=== PATIENT | male | born 1955 | race Hispanic/Latino ===

== ENCOUNTER 2018-07-16 11:46 | Inpatient (IN) | payer OTHER ==
[~2018-07-16] VITALS: Ht 167.6 cm; Wt 110.4 kg
[2018-07-16] MEDS ORDERED: SODIUM CHLORIDE 0.9% 1000ML 1,000 ML IV STA (12:07)
[2018-07-16] MEDS ORDERED: ASPIRIN 81 MG CHEW TAB PO ONE ×2 (12:15→14:15)
[2018-07-16] MEDS ORDERED: CLINDAMYCIN 600MG / 50ML 50 ML IV ONE (12:15)
[2018-07-16 12:48] LABS: BASOPHILS % 0.5 % (0.0-1.0); EOSINOPHILS # (AUTO) 0.1 (0.0-0.4); EOSINOPHILS % 1.2 % (0.0-6.0); HEMATOCRIT 44.2 % (38.2-49.6); HEMOGLOBIN 15.1 g/dL (14.0-18.0); LYMPHOCYTES # (AUTO) 1.1 (1.0-3.2); LYMPHOCYTES % 14.1 % (18.0-39.1); MEAN CORPUSCULAR HEMOGLOBIN 30.8 pg (28-32); MEAN CORPUSCULAR HGB CONC 34.2 g/dL (31-35); MEAN CORPUSCULAR VOLUME 90.2 fL (81-99); MONOCYTES # (AUTO) 0.5 (0.2-0.8); MONOCYTES % 6.2 % (4.4-11.3); NEUTROPHILS % 77.4 % (38.7-80.0); PLATELET COUNT 237 x10e3/uL (140-360); RED CELL DISTRIBUTION WIDTH 12.9 % (11.7-14.4)
[2018-07-16 12:58] LABS: INR 0.95; PROTHROMBIN TIME 13.5 seconds (11.9-14.5)
[2018-07-16 12:59] LABS: PARTIAL THROMBOPLASTIN TIME 30.4 seconds (23.8-35.5)
[2018-07-16 13:07] LABS: ALANINE AMINOTRANSFERASE 26 IU/L (0-55); ALBUMIN 3.4 g/dL (3.5-5.0); ALBUMIN/GLOBULIN RATIO 0.8 (0.8-2.0); ALKALINE PHOSPHATASE 98 IU/L (40-150); ANION GAP 13.5 mmol/L (8-16); BLOOD UREA NITROGEN 8 mg/dL (7-26); BUN/CREATININE RATIO 12 (6-25); CALCIUM 9.6 mg/dL (8.4-10.2); CARBON DIOXIDE 24 mmol/L (22-29); CHLORIDE 100 mmol/L (98-107); CREATINE KINASE 96 IU/L (30-200); CREATININE, SERUM 0.69 mg/dL (0.72-1.25); EST GLOMERULAR FILTRATION RATE > 60 ML/MIN (60-); GLUCOSE 192 mg/dL (74-118); POTASSIUM 3.5 mmol/L (3.5-5.1); SODIUM 134 mmol/L (136-145)
--- NOTE | 2018-07-16 14:24 | Diagnostic Imaging Report ---
EXAM: CHEST 2 VIEWS, PA and lateral DATE: 07/16/2018 12:47 PM Time stamp on exam: 1:48 PM INDICATION: Fibrillation COMPARISON: None FINDINGS: LINES/TUBES: None LUNGS: No consolidations or edema. PLEURA: No effusions or pneumothorax. HEART AND MEDIASTINUM: Mild cardiac prominence. BONES AND SOFT TISSUES: Old left-sided rib fracture. Mild degenerative changes of the spine. IMPRESSION: No acute thoracic abnormality. Signed by: Dr. Antwan Fregoso DO on 07/16/2018 2:21 PM
[2018-07-16] MEDS ORDERED: ENOXAPARIN SODIUM INJ 100 MG/ML SYR SC ONE ×2 (14:45→21:00)
--- OUTSIDE RECORDS SUMMARY | 2018-07-16 17:39 | XMS REPORT ---
Author Author [facility] Address Unknown Phone Unavailable Care Team Providers Care Inspector Watch Train Name Role Phone Monique CLIFTON Unavailable Unavailable Problems This patient has no known problems. Allergies, Adverse Reactions, Alerts This patient has no known allergies or adverse reactions. Medications This patient has no known medications. Results Test Description Test Time Test Comments Text Results Atomic Results Result Comments CHEST 2 VIEWS 2018-07-16 14:19:00 [place] [address] Patient Name: MARCELA ARORA MR #: [id number] : 1955 Age/Sex: 62/M Req #: [id number] Adm Physician: Ordered by: ORIN CLIFTON MD Report #: [id number] Location: ER Room/Bed: Procedure: [id number] DX/CHEST 2 VIEWS Exam Date: 07/16/18 Exam Time: 1400 REPORT STATUS: Signed EXAM: CHEST 2 VIEWS, PA and lateral DATE: 07/16/2018 12:47 PM Time stamp on exam: 1:48 PM INDICATION: Fibrillation COMPARISON: None FINDINGS: LINES/TUBES: None LUNGS: No consolidations or edema. PLEURA: No effusions or pneumothorax. HEART AND MEDIASTINUM: Mild cardiac prominence. BONES AND SOFT TISSUES: Old left-sided rib fracture. Mild degenerative changes of the spine. IMPRESSION: No acute thoracic abnormality. Signed by: Dr. Lisset Fregoso DO on 07/16/2018 2:21 PM Dictated By: LISSET FREGOSO DO 142 Transcribed By: MARGARITO on 07/16/18 142 COPY TO: ORIN CLIFTON MD
[2018-07-16 21:20] VITALS: BP 146/83
[2018-07-17 00:20] LABS: CREATINE KINASE 71 IU/L (30-200)
[2018-07-17 00:42] VITALS: BP 146/83
[2018-07-17 04:48] VITALS: BP 146/83
[2018-07-17 06:12] LABS: CREATINE KINASE 61 IU/L (30-200)
[2018-07-17 06:41] LABS: CHOL/HDL RATIO 15.4 (3.9-4.7); CHOLESTEROL 169 MD/DL (0-199); HDL CHOLESTEROL 11 MG/DL (40-60); TRIGLYCERIDES 972 MG/DL (0-149)
[2018-07-17 08:30] VITALS: BP 147/90
[2018-07-17] MEDS ORDERED: MICARDIS40 MG PO (09:13)
[2018-07-17] MEDS ORDERED: PLAVIX75 MG PO (09:13)
[2018-07-17] MEDS ORDERED: AMLODIPINE BESY10 MG PO (09:13)
[2018-07-17] MEDS ORDERED: ATORVASTATIN CA20 MG PO (09:13)
[2018-07-17] MEDS: ASPIRIN 81 MG ENTERIC COATED PO SCH (09:47)
--- NOTE | 2018-07-17 10:53 | History and Physical ---
Mr. David is a 62-year-old man with a history of diabetes, hypertension, hyperlipidemia, and alcohol abuse came to the emergency room complaining of right lower extremity cellulitis for 4 days. He was told his heart had irregular beats. PAST MEDICAL HISTORY: Diabetes, hypertension, hyperlipidemia. ALLERGIES: NO KNOWN DRUG ALLERGIES. SOCIAL HISTORY: He lives at home with his family. He does not smoke, but he drinks almost every day. PHYSICAL EXAMINATION GENERAL: He is awake and alert. VITALS: Temperature is 98.4, blood pressure 146/83. CARDIOVASCULAR: Irregularly irregular. LUNGS: Poor inspiratory effort. ABDOMEN: Soft. EXTREMITIES: The right lower extremity shows erythema and is warm to touch. BLOOD WORK: Potassium is 3.5, creatinine 2.69, glucose 192. White count 7.75, hemoglobin 15.1, hematocrit 44.2. Chest x-ray shows no acute findings. ADMITTING DIAGNOSES 1. Right lower extremity cellulitis. 2. New-onset atrial fibrillation. 3. Hypertension. 4. Diabetes, type 2. 5. Hyperlipidemia. PLAN: Is to admit the patient to the hospital. IV antibiotics. We are going to get a cardiology consult and infectious disease consult. Continue aspirin. Restart home medications. ADA diet. Sliding scale with insulin. All this was discussed with the patient and family at bedside. All questions were answered to satisfaction. Job#: [id number] ANNIE
[2018-07-17] MEDS: ENOXAPARIN SODIUM INJ 100 MG/ML SYR SC SCH ×2 (11:02→22:01)
[2018-07-17 11:36] VITALS: BP 129/90
[2018-07-17] MEDS ORDERED: DEXTROSE 50% SYRINGE 50 ML IV PRN (12:30)
--- NOTE | 2018-07-17 12:42 | Consultation ---
DATE OF CONSULTATION: July 17, 2018 CARDIOLOGY CONSULTATION REASON FOR CONSULTATION: Atrial fibrillation. HISTORY OF PRESENT ILLNESS: This is a 62-year-old man who has a history of obesity, hypertension, nonobstructive coronary artery disease, hyperlipidemia, and possible history of stroke from a cerebral embolism in [place], who presented to the emergency department with right lower extremity pain and redness. He was seen at an outside facility and was told he had atrial fibrillation and was sent here for additional care. He has no prior history of atrial fibrillation. He has no symptoms of chest pain, shortness of breath, palpitations, orthopnea, paroxysmal nocturnal dyspnea, or syncopal episodes. REVIEW OF SYSTEMS: A 12-point review of systems was conducted, is negative otherwise as above in the HPI. PAST MEDICAL HISTORY: Hypertension, hyperlipidemia, obesity, nonobstructive coronary artery disease, cerebrovascular accident. PAST SURGICAL HISTORY: Cardiac catheterization. PAST FAMILY HISTORY: No premature coronary artery disease or sudden cardiac . SOCIAL HISTORY: Denies any current illicit drug use, alcohol use, tobacco use. ALLERGIES: NO KNOWN DRUG ALLERGIES. MEDICATIONS: See medication reconciliation form. PHYSICAL EXAMINATION VITAL SIGNS: Temperature is 97.5 degrees Fahrenheit, heart rate is 75, respirations are 18, blood pressure is 147/90, oxygen saturation 95% on room air. GENERALLY: He is a man in no apparent distress, alert and oriented x3, obese build. HEAD: Normocephalic, atraumatic. EYES: The extraocular muscles are intact. Conjunctiva is clear. NECK: No JVD, no bruits. CARDIOVASCULAR: He is irregularly irregular, normal rate. No murmurs appreciated. Normal S1 and S2. LUNGS: Clear to auscultation. No wheezing, no rales. ABDOMEN: Obese, soft, nontender. EXTREMITIES: 1+ edema. The right lower extremity has erythema as well, mildly tender to palpation. NEUROLOGIC: No focal deficits noted. Cranial nerves appear grossly intact. PSYCHIATRIC: Normal mood and affect. All laboratory data reviewed, notable for white blood cell count of 7.7, hemoglobin 15.1. His triglycerides are 972, total cholesterol is 169, HDL is 11. Glucose is 192. Troponins of less than 0.01 x3 sets. Creatinine is 0.69, potassium is 3.5. A 12-lead electrocardiogram shows atrial fibrillation with nonspecific ST-T wave abnormalities. Chest x-ray shows no acute thoracic abnormality. IMPRESSION/RECOMMENDATIONS 1. Atrial fibrillation. Unclear duration as the patient is relatively asymptomatic. Patient is already receiving Lovenox injections and will continue this q.12 h. Patient will require oral anticoagulation for an elevated CHADS-VASc score of at least 4 due to diabetes, hypertension, and possible history of cerebrovascular accident. Unfortunately, the patient has no insurance currently. The patient and his daughter state that he will be unable to follow up for regular INR checks. I will provide him free samples of Xarelto, provide discount cards, and patient's family state that they will provide financial assistance. I also discussed with patient the importance of enrolling in the [facility] [employer] Card program. In the meantime, while he is here will check a 2-D echocardiogram and all other labs consisting of hemoglobin A1c, TSH, magnesium, and replace all electrolyte levels. Will also start him on metoprolol for rate control. 2. Hypertension. The patient's blood pressure is mildly elevated. Will restart home antihypertensive regimens. 3. Hyperlipidemia. Continue atorvastatin; however, will increase to 40 mg. Thank you for the consultation. Will follow along with you. Job#: [id number] EV
[2018-07-17] MEDS ORDERED: CLOPIDOGREL BISULFATE 75 MG TAB PO SCH (13:00)
[2018-07-17] MEDS: INSULIN REGULAR, HUMAN 100 UNIT/1 ML 3ML VIAL SQ SCH ×3 (13:29→21:00)
[2018-07-17] MEDS: METOPROLOL TARTRATE 25 MG TAB PO SCH ×2 (13:29→22:02)
[2018-07-17] MEDS: TELMISARTAN 40 MG TAB PO SCH (13:29)
[2018-07-17 17:30] VITALS: BP 125/84
[2018-07-17] MEDS: CLINDAMYCIN 600MG / 50ML 50 ML IV SCH (17:32)
--- NOTE | 2018-07-17 18:13 | Consultation ---
DATE OF CONSULTATION: July 17, 2018 INFECTIOUS DISEASE CONSULTATION REASON FOR CONSULTATION: Cellulitis of the leg. HISTORY OF PRESENT ILLNESS: This is a patient who is a 62-year-old male who has history of obesity, diabetes mellitus, hypertension, hyperlipidemia, alcohol abuse. Comes in with redness and swelling of the right lower extremity for 4 days. Also noted that his heart has irregular heartbeat. Patient came to the emergency room, where he is being evaluated and being admitted. He is currently lying in bed comfortably, family at the bedside. PAST MEDICAL HISTORY: Diabetes mellitus, hypertension, hyperlipidemia, obesity. PAST SURGICAL HISTORY: He denies. ALLERGIES: NKA. SOCIAL HISTORY: There is no smoking, drug abuse. REVIEW OF SYSTEMS: HEENT: Negative. PULMONARY: Negative. CARDIAC: As above. : Negative. GI: Negative. SKIN: There is no rash except on the leg. The patient was admitted. He was diagnosed with atrial fibrillation. He was noted to have redness and swelling of his leg. Infectious Disease was consulted. LABORATORY DATA: White count 7.75. Hemoglobin 15. His sodium 134, potassium 3.5, creatinine 0.69. Liver enzymes within normal limits. PHYSICAL EXAMINATION: GENERAL: He is currently alert, oriented, does not seem to be in acute distress. VITALS: Stable. Currently afebrile. HEENT: He does not appear icteric. NECK: Supple. CHEST: Clear. HEART: S1 and S2. No S3, no S4, no murmur. ABDOMEN: Soft. Bowel sounds present. THE LEG: There is redness and swelling coming from below the knee to above the ankle on the right. IMPRESSION: 1. Cellulitis of the leg. Will put the patient on IV clindamycin for the time-being. 2. Atrial fibrillation. Cardiology has been consulted. 3. Obesity. 4. Hypertension. 5. Diabetes. Will follow with you. Job#: [id number] EV
[2018-07-17 20:16] VITALS: BP 135/79
[2018-07-17] MEDS ORDERED: CLINDAMYCIN 600MG / 50ML 50 ML IV SCH (22:00)
[2018-07-17] MEDS: ATORVASTATIN 20 MG TAB PO SCH (22:00)
[2018-07-18] VITALS (8 sets, daily range): BP systolic 115–136; BP diastolic 58–82
[2018-07-18] MEDS: CLINDAMYCIN 600MG / 50ML 50 ML IV SCH ×3 (01:25→16:54)
[2018-07-18] MEDS: INSULIN REGULAR, HUMAN 100 UNIT/1 ML 3ML VIAL SQ SCH ×4 (07:50→21:00)
[2018-07-18] MEDS: ENOXAPARIN SODIUM INJ 100 MG/ML SYR SC SCH ×2 (08:50→21:00)
[2018-07-18] MEDS: TELMISARTAN 40 MG TAB PO SCH (09:00)
[2018-07-18] MEDS: METOPROLOL TARTRATE 25 MG TAB PO SCH ×2 (09:00→21:00)
[2018-07-18] MEDS ORDERED: AMLODIPINE BESYLATE 10 MG TAB PO SCH (09:00)
[2018-07-18] MEDS: ASPIRIN 81 MG ENTERIC COATED PO SCH (10:05)
--- NOTE | 2018-07-18 10:08 | Progress Note ---
DATE: July 18, 2018 Mr. David is a 62-year-old man with diabetes, hypertension, hyperlipidemia. He came to the emergency room complaining of right lower extremity cellulitis and irregular heartbeat. PHYSICAL EXAMINATION GENERAL: Today he is awake and alert. VITALS: Temperature is 97.6. Blood pressure is 125/80. HEART: Continues to be irregularly irregular. LUNGS: Clear to auscultation. ABDOMEN: Soft. EXTREMITIES: The right lower extremity still has some erythema but it is better. BLOOD WORK: Potassium is 3.5, creatinine 0.69, glucose 192. White count 7.75, hemoglobin 15.1, hematocrit 44.2. Chest x-ray shows no acute findings. Echocardiogram is pending. ADMITTING DIAGNOSES 1. Right lower extremity cellulitis. 2. New-onset atrial fibrillation. 3. Hypertension. 4. Diabetes, type 2. 5. Hyperlipidemia. The plan at the present time is to continue IV antibiotics. Continue ADA diet. Sliding scale with insulin. The plan for him is probably to discharge him home tomorrow. 3D Specialist to provide samples of Xarelto for this patient for his atrial fibrillation. Probably switch him to p.o. antibiotics. The patient does not have insurance, so he should try to enroll in the [facility][[email or web address]] [email or web address] Card program to continue his treatment. All this was discussed with the patient and family. All questions were answered to satisfaction. Job#: [id number] [place]
[2018-07-18 10:37] LABS: ANION GAP 11.3 mmol/L (8-16); BLOOD UREA NITROGEN 11 mg/dL (7-26); BUN/CREATININE RATIO 15 (6-25); CALCIUM 9.4 mg/dL (8.4-10.2); CARBON DIOXIDE 24 mmol/L (22-29); CHLORIDE 102 mmol/L (98-107); CREATININE, SERUM 0.74 mg/dL (0.72-1.25); EST GLOMERULAR FILTRATION RATE > 60 ML/MIN (60-); GLUCOSE 221 mg/dL (74-118); MAGNESIUM 1.9 MG/DL (1.3-2.1); POTASSIUM 3.3 mmol/L (3.5-5.1); SODIUM 134 mmol/L (136-145)
[2018-07-18 11:00] LABS: FREE T4 (FREE THYROXINE) 1.18 ng/dL (0.9-1.8); THYROID STIMULATING HORMONE 0.932 uIU/mL (0.350-4.940)
--- NOTE | 2018-07-18 14:11 | Progress Note ---
DATE: July 18, 2018 CARDIOLOGY PROGRESS NOTE SUBJECTIVE: Patient feeling well. Denies any chest pain, palpitations or shortness of breath. OBJECTIVE VITAL SIGNS: Temperature is 97.4. Heart rate is 88. Respirations are 24. Blood pressure is 115/58. Oxygen saturation is 93% on room air. GENERAL: He is an obese man lying comfortably in bed in no apparent distress. CARDIOVASCULAR: Irregularly irregular, normal rate. Normal S1 and S2. No murmurs. LUNGS: Clear to auscultation. ABDOMEN: Obese, soft, nontender. EXTREMITIES: There are right lower extremity swelling and erythema. NEUROLOGIC: No focal deficits noted. CARDIOVASCULAR MEDICATIONS: Reviewed. LABORATORY DATA: Reviewed. Notable for normal TSH of 0.932. Magnesium is 1.9. Potassium is 3.3. A 2-D echocardiogram showed overall normal left ventricular systolic function and a mildly dilated left atrium. IMPRESSION 1. Atrial fibrillation. 2. Hypertension. 3. Hyperlipidemia. 4. Obesity. 5. Cellulitis. 6. Diabetes mellitus. RECOMMENDATIONS 1. This patient has an elevated CHADS-VASc score and has continued to remain in atrial fibrillation with controlled ventricular response. Continue beta blockers for heart rate control. Start the patient on Xarelto 20 mg for anticoagulation. His TSH was within normal limits. Please correct electrolytes and keep potassium greater than 4 and magnesium greater than 2. Otherwise, no further cardiovascular workup needed at this point in time. The patient will need to be enrolled in the [facility] system for adequate followup. 2. Hypertension: The patient's blood pressure is reasonably well controlled on current antihypertensives. 3. Hyperlipidemia: Continue atorvastatin. 4. Diabetes mellitus: Treatment per primary team. 5. Cellulitis: Treatment per primary team. Thank you for the consultation. The patient is stable for discharge from a cardiovascular standpoint on metoprolol and Xarelto. Job#: [id number]
[2018-07-18] MEDS: ATORVASTATIN 20 MG TAB PO SCH (21:00)
[2018-07-19] VITALS: BP 119/86
[2018-07-19] MEDS: CLINDAMYCIN 600MG / 50ML 50 ML IV SCH ×2 (01:46→08:22)
[2018-07-19] MEDS: INSULIN REGULAR, HUMAN 100 UNIT/1 ML 3ML VIAL SQ SCH (07:52)
[2018-07-19 08:00] VITALS: BP 169/84
[2018-07-19] MEDS: METOPROLOL TARTRATE 25 MG TAB PO SCH (08:24)
[2018-07-19] MEDS: ENOXAPARIN SODIUM INJ 100 MG/ML SYR SC SCH (08:24)
[2018-07-19] MEDS: ASPIRIN 81 MG ENTERIC COATED PO SCH (10:15)
[2018-07-19] MEDS: TELMISARTAN 40 MG TAB PO SCH (10:16)
[2018-07-19 10:20] VITALS: BP 169/84
[2018-07-19] MEDS ORDERED: CLEOCIN HCL150 MG PO (11:28)
[2018-07-19] MEDS ORDERED: METOPROLOL TART25 MG PO (11:28)
[2018-07-19 12:00] VITALS: BP 118/58
--- NOTE | 2018-07-19 18:53 | Discharge Summary ---
HOSPITAL COURSE: Ms. Watkins is a 62-year-old man with history of diabetes, hypertension and hyperlipidemia. He came to the emergency room with right lower extremity cellulitis and new onset atrial fibrillation. Cellulitis is improving. He is on Xarelto and metoprolol for his atrial fibrillation. PHYSICAL EXAM: GENERAL: Today, he is awake and alert. He is feeling fine. He wants to go home. VITAL SIGNS: Temperature is 97.6, blood pressure 169/84. HEART: Regular irregular. LUNGS: Clear to auscultation. ABDOMEN: Soft. BLOOD WORK: White count 7.75, hemoglobin 15.1. Glucose 160. Creatinine 0.74. Blood cultures negative. Chest x-ray no acute findings. DISCHARGE DIAGNOSES: 1. Right lower extremity cellulitis. 2. New onset atrial fibrillation. 3. Hypertension. 4. Diabetes type 2. 5. Hyperlipidemia PLAN: Put the patient on clindamycin 300 mg p.o. q.8 hours for 10 more days. Continue ADA diet. Continue home insulin. Metoprolol 25 mg twice a day. Xarelto 20 mg daily. Samples were given by compound finisher. He needs followup with his PCP in 1 week and with compound finisher as directed by him. He is to call me or come back to the emergency room if any recurrent problem. Please see home medication reconciliation list. All this was discussed with patient and family. All questions were answered to satisfaction. Job#: [id number]
== END 2018-07-19 12:06 | disposition home or self-care (01) | DRG 603 ==
LOC: ER 11:46 → ERHOLD 17:34 → MED/SURG3 07-17 19:45
PROVIDERS: ADMIT Internal Medicine; ATTEND Internal Medicine
DX: L03.115 Cellulitis of right lower limb (principal); Z79.4 Long term (current) use of insulin; E78.5 Hyperlipidemia, unspecified; I48.91 Unspecified atrial fibrillation; Z79.01 Long term (current) use of anticoagulants; F10.20 Alcohol dependence, uncomplicated; Y90.9 Presence of alcohol in blood, level not specified; I49.9 Cardiac arrhythmia, unspecified; E66.9 Obesity, unspecified; Z68.39 Body mass index [BMI] 39.0-39.9, adult; I25.10 Atherosclerotic heart disease of native coronary artery without angina pectoris; Z86.73 Personal history of transient ischemic attack (TIA), and cerebral infarction without residual deficits; E11.9 Type 2 diabetes mellitus without complications
CPT/HCPCS: 36415; 71046; 80048; 80053; 80061; 82550; 82553; 82948; 83605; 83735; 84439; 84443; 84484; 85025; 85610; 85730; 87040; 93005; 93306; 96372; 99284; J1650; J7030